=== PATIENT | female | born 1990 | race Caucasian/White ===

== ENCOUNTER 2019-08-11 12:09 | Emergency (ER) | payer OTHER ==
[~2019-08-11] VITALS: Ht 170.2 cm; Wt 114.8 kg
[2019-08-11] MEDS ORDERED: methylPREDNISolone SOD SUCC PF 125 MG/2 ML VIAL. IM ONE (13:00)
[2019-08-11] MEDS ORDERED: NAPROXEN 500 MG TABLET PO ONE (13:00)
--- NOTE | 2019-08-11 13:00 | PHYS DOC ---
Adult General Chief Complaint Chief Complaint: SORE THROAT HPI HPI 29-year-old female presents with sore throat. She has had congestion, runny nose, general malaise for nearly the past 2 weeks. 4 days ago, she started to get over a cough and the nasal congestion improved but her sore throat has been getting worse. She now noticed that her tonsils are touching in the back. It is becoming more difficult to swallow fluids. She decided she should come in for evaluation. She is not having any difficulty breathing. She denies fever or chills. Review of Systems Review of Systems Constitutional: Denies fever or chills [] Eyes: Denies change in visual acuity, redness, or eye pain [] HENT: Sore throat [] Respiratory: Denies cough or shortness of breath [] Cardiovascular: No additional information not addressed in HPI [] GI: Denies abdominal pain, nausea, vomiting, bloody stools or diarrhea [] : Denies dysuria or hematuria [] Musculoskeletal: Denies back pain or joint pain [] Integument: Denies rash or skin lesions [] Neurologic: Denies headache, focal weakness or sensory changes [] Endocrine: Denies polyuria or polydipsia [] All other systems were reviewed and found to be within normal limits, except as documented in this note. Current Medications Current Medications Current Medications Medications (Trade) Dose Ordered Sig/Jez Start Time Stop Time Status Last Admin Dose Admin Naproxen (Naprosyn) 500 mg 1X ONCE 08/11/19 13:00 08/11/19 13:01 Allergies Allergies Allergies Coded Allergies Type Severity Reaction Last Updated Verified No Known Drug Allergies 08/11/19 No Physical Exam Physical Exam Constitutional: Well developed, obese, well nourished, no acute distress, non- toxic appearance. [] HENT: Normocephalic, atraumatic, bilateral external ears normal, oropharynx is edematous with very enlarged tonsils touching jugular.[] Eyes: PERRLA, EOMI, conjunctiva normal, no discharge. [] Neck: Anterior cervical lymphadenopathy. Normal range of motion, no tenderness, supple, no stridor. [] Cardiovascular:Heart rate regular rhythm, no murmur [] Lungs & Thorax: Bilateral breath sounds clear to auscultation [] Abdomen: Bowel sounds normal, soft, no tenderness, no masses, no pulsatile masses. [] Skin: Warm, dry, no erythema, no rash. [] Back: No tenderness, no CVA tenderness. [] Extremities: No tenderness, no cyanosis, no clubbing, ROM intact, no edema. [] Neurologic: Alert and oriented X 3, normal motor function, normal sensory function, no focal deficits noted. [] Psychologic: Affect normal, judgement normal, mood normal. [] EKG EKG [] Radiology/Procedures Radiology/Procedures [] Course & Med Decision Making Course & Med Decision Making Pertinent Labs and Imaging studies reviewed. (See chart for details) The side of the patient's tonsils, I have ordered 125 Solu-Medrol IM. The patient is positive for Strep A. I will treat her with Bicillin injection. She is stable for discharge at this time. [] Dragon Disclaimer Dragon Disclaimer This electronic medical record was generated, in whole or in part, using a voice recognition dictation system. Departure Departure: Impression: Primary Impression: Strep pharyngitis Disposition: 01 HOME, SELF-CARE Condition: STABLE Referrals: JAVON WALKER MD (PCP) Patient Instructions: Strep Throat, [id number] KANDIS LOPEZ DO Aug 11, 2019 13:00
[2019-08-11] MEDS ORDERED: PENICILLIN G BENZATHINE LA 1,200,000 UNIT/2 ML DISP.SYRIN. IM ONE ×2 (13:26→13:30)
[2019-08-11 14:54] VITALS: BP 139/85
== END 2019-08-11 14:38 | disposition home or self-care (01) ==
LOC: ER 12:09
DX: J02.0 Streptococcal pharyngitis (principal); B95.0 Streptococcus, group A, as the cause of diseases classified elsewhere
CPT/HCPCS: 87880; 96372; 99284; J0561; J2930